=== PATIENT | female | born 1945 | race Caucasian/White ===

== ENCOUNTER 2018-05-01 06:54 | Day surgery (SDC) | payer MEDICARE ==
[2018-05-01] MEDS ORDERED: Lactated Ringers 1,000 ML IV SCH (08:00)
[2018-05-01] MEDS ORDERED: Propofol 200 MG/20 ML SDV ONE (08:03)
[2018-05-01] MEDS ORDERED: fentaNYL 100 MCG/2 ML SDV ONE (08:03)
--- NOTE | 2018-05-01 09:53 | OR ---
DATE OF PROCEDURE: 05/01/2018 SURGEON: Tj Cabello MD PREOP DIAGNOSIS: Strong family history of colon cancer, father had colon cancer. POSTOP DIAGNOSIS: Diverticulosis, strong family history of colon cancer, father had colon cancer. PROCEDURE PERFORMED: Colonoscopy to the cecum. ANESTHESIA: IV anesthesia with monitored anesthesia care. INDICATION: This 73-year-old white female is referred for a colonoscopy. She has a strong family history of colon cancer and that her father had colon cancer. I counseled her for the procedure including risks and alternatives and she gave her informed consent to proceed. DESCRIPTION OF PROCEDURE: The patient was placed in the left lateral decubitus position. IV anesthesia was administered by the Anesthesia Service. Time-out was held. A rectal exam was performed, which was unremarkable. The flexible video Olympus colonoscope was introduced through her anus, up her rectum out her colon all the way to the cecum. En route, we saw multiple left-sided diverticula. There was no bleeding or inflammation associated with any of them. Once the cecum was reached, the scope was slowly withdrawn examining the mucosa throughout. No additional mucosal abnormalities were noted. No neoplastic lesions were seen. The scope was retroflexed in the rectum with the distal rectum appearing unremarkable. The scope was straightened and removed. She tolerated the procedure well. Tj Cabello MD /[id number]
== END 2018-05-01 10:30 | disposition home or self-care (01) ==
LOC: JP.SDS 06:54
PROVIDERS: ATTEND Surgery
DX: Z12.11 Encounter for screening for malignant neoplasm of colon (principal); K57.30 Diverticulosis of large intestine without perforation or abscess without bleeding; I10 Essential (primary) hypertension; E78.5 Hyperlipidemia, unspecified; K21.9 Gastro-esophageal reflux disease without esophagitis; Z80.0 Family history of malignant neoplasm of digestive organs; Z88.8 Allergy status to other drugs, medicaments and biological substances
CPT/HCPCS: J2704; J3010; J7120

== ENCOUNTER 2020-02-19 07:40 | Day surgery (SDC) | payer MEDICARE ==
[~2020-02-19 07:40] MED LIST: Midazolam 1 MG/ML 2 ML SDV ONE; Propofol 200 MG/20 ML SDV ONE; fentaNYL 100 MCG/2 ML SDV ONE
[2020-02-19] MEDS ORDERED: Sodium Chloride 0.9% 1,000 ML IV SCH (08:30)
--- NOTE | 2020-02-19 13:22 | OR ---
DATE OF PROCEDURE: 02/19/2020 SURGEON: Sony Lovell MD PROCEDURES: 1. Colonoscopy. 2. Endoscopic internal hemorrhoid banding. COMPLICATIONS: None. AS400 ADMINISTRATOR: None. ANESTHESIA: MAC. PREOPERATIVE DIAGNOSIS: History of gastrointestinal bleeding. POSTOPERATIVE DIAGNOSIS: History of gastrointestinal bleeding. RISKS: Risks, benefits, alternatives, and limitations including, but not limited to infection, bleeding, and perforation were explained to the patient, who wished to proceed. PROCEDURE IN DETAIL: The patient was placed in left lateral decubitus position. A digital rectal exam was performed and the internal hemorrhoids were noted. Scope was introduced and advanced atraumatically to the ileocecal valve. Scope was brought back through the ascending, transverse, descending colon, and retroflexed. No evidence of old or new blood. No masses. The patient did have diverticulosis that was described as moderate, mostly limited to sigmoid colon. No abnormalities on retroflexion, except for the aforementioned hemorrhoid. This was then banded endoscopically x2 without abnormality. The patient tolerated the procedure well. Sony Lovell MD /[id number]
== END 2020-02-19 10:25 | disposition home or self-care (01) ==
LOC: JP.SDS 07:40
PROVIDERS: ATTEND Surgery
DX: Z12.11 Encounter for screening for malignant neoplasm of colon (principal); K64.8 Other hemorrhoids; K57.30 Diverticulosis of large intestine without perforation or abscess without bleeding; E78.5 Hyperlipidemia, unspecified; I10 Essential (primary) hypertension; E66.9 Obesity, unspecified; K21.9 Gastro-esophageal reflux disease without esophagitis; Z68.31 Body mass index [BMI] 31.0-31.9, adult; Z87.19 Personal history of other diseases of the digestive system; Z87.891 Personal history of nicotine dependence
CPT/HCPCS: G0121; J2250; J2704; J3010; J7030